=== PATIENT | female | born 1950 | race Caucasian/White ===

== ENCOUNTER 2018-04-30 06:49 | Emergency (ER) | payer MEDICAID ==
[~2018-04-30] VITALS: Ht 162.6 cm; Wt 40.9 kg
[2018-04-30 07:04] VITALS: BP 133/72; Ht 162.6 cm; Wt 40.9 kg
== END 2018-04-30 07:30 | disposition home or self-care (01) ==
LOC: ED 06:49
DX: K04.7 Periapical abscess without sinus (principal); R22.0 Localized swelling, mass and lump, head; I10 Essential (primary) hypertension

== ENCOUNTER 2018-10-21 02:42 | Emergency (ER) | payer MEDICAID ==
[~2018-10-21] VITALS: Ht 160 cm; Wt 88.0 kg
[2018-10-21 02:49] VITALS: Ht 160 cm; Wt 88.0 kg
[2018-10-21] MEDS ORDERED: NOR10 PO (03:39)
[2018-10-21] MEDS ORDERED: GLUCOPHAGE XR500 MG PO (03:40)
[2018-10-21] MEDS ORDERED: LIPI20 PO (03:40)
[2018-10-21] MEDS ORDERED: HYDROCHLOROTHIA25 MG PO (03:41)
[2018-10-21 03:56] LABS: BASOPHIL % 0.6 % (0-2); PLATELET COUNT 292 x10^3mcL (130-400); RED CELL DISTRIBUTION WIDTH 13.1 % (11.5-14.5)
[2018-10-21 04:01] LABS: CALCIUM 8.9 mg/dL (8.5-10.1); CARBON DIOXIDE 29.6 mmol/L (21-32); CHLORIDE SERUM 102 mmol/L (98-107); CREATININE SERUM 0.8 mg/dL (0.6-1.0); GFR1 > 60 mL/min; GLUCOSE SERUM 131 mg/dL (74-106)
[2018-10-21 04:11] LABS: POTASSIUM SERUM 3.3 mmol/L (3.5-5.1); SODIUM SERUM 140 mmol/L (136-145)
[2018-10-21 04:54] VITALS: BP 144/62
== END 2018-10-21 04:54 | disposition home or self-care (01) ==
LOC: ED 02:42
PROVIDERS: Emergency Medicine
DX: F41.9 Anxiety disorder, unspecified (principal); I10 Essential (primary) hypertension; E11.9 Type 2 diabetes mellitus without complications; E78.00 Pure hypercholesterolemia, unspecified
CPT/HCPCS: 36415

== ENCOUNTER 2019-02-13 18:11 | Emergency (ER) | payer MEDICAID ==
[~2019-02-13] VITALS: Ht 167.6 cm; Wt 86.2 kg
[~2019-02-13 18:11] MED LIST: GLUCOPHAGE XR500 MG PO; HYDROCHLOROTHIA25 MG PO; LIPI20 PO; NOR10 PO
[2019-02-13 18:14] VITALS: Ht 167.6 cm; Wt 86.2 kg
[2019-02-13 18:59] LABS: BASOPHIL % 0.2 % (0-2); PLATELET COUNT 314 x10^3mcL (130-400); RED CELL DISTRIBUTION WIDTH 13.9 % (11.5-14.5)
[2019-02-13 19:06] LABS: CALCIUM 9.6 mg/dL (8.5-10.1); CARBON DIOXIDE 25.6 mmol/L (21-32); CHLORIDE SERUM 105 mmol/L (98-107); CREATININE SERUM 0.8 mg/dL (0.6-1.0); GFR1 > 60 mL/min; GLUCOSE SERUM 134 mg/dL (74-106); POTASSIUM SERUM 3.6 mmol/L (3.5-5.1); SODIUM SERUM 140 mmol/L (136-145)
[2019-02-13 19:08] LABS: ALBUMIN 3.9 g/dL (3.4-5.0); ALKALINE PHOSPHATASE 79 U/L (46-116); ALT/SGPT 17 U/L (14-59); AMYLASE 62 U/L (25-115); AST/SGOT 6 U/L (15-37); BILIRUBIN TOTAL 0.35 mg/dL (0.20-1.00); LIPASE 181 IU/L (73-393); TOTAL PROTEIN, SERUM 7.6 g/dL (6.4-8.2)
[2019-02-13 19:34] LABS: UA SPECIFIC GRAVITY >=1.030 (1.005-1.035); microscopic required? YES; urine erythrocyte 1+ (NEGATIVE)
[2019-02-13 20:32] VITALS: BP 133/73
== END 2019-02-13 20:32 | disposition home or self-care (01) ==
LOC: ED 18:11
PROVIDERS: Emergency Medicine
DX: N20.0 Calculus of kidney (principal); F41.9 Anxiety disorder, unspecified; R06.4 Hyperventilation; I10 Essential (primary) hypertension; E11.9 Type 2 diabetes mellitus without complications; E78.00 Pure hypercholesterolemia, unspecified
CPT/HCPCS: J2060; J2405; J3490; J7030; Q9967

== ENCOUNTER 2019-02-15 12:41 | Inpatient (IN) | payer MEDICAID ==
[~2019-02-15] VITALS: Ht 157.5 cm; Wt 88.5 kg
[2019-02-15 12:48] VITALS: Ht 157.5 cm; Wt 88.5 kg
[2019-02-15 13:27] LABS: BASOPHIL % 0.2 % (0-2); PLATELET COUNT 299 x10^3mcL (130-400); RED CELL DISTRIBUTION WIDTH 14.2 % (11.5-14.5)
[2019-02-15] MEDS ORDERED: PRINIVIL10 MG PO (13:36)
[2019-02-15] MEDS ORDERED: TRAMADOL HYDROC1 TA1 (13:36)
[2019-02-15] MEDS ORDERED: PHENAZOPYRIDIN200 M3 PO (13:37)
[2019-02-15] MEDS ORDERED: ZOF4 (13:37)
[2019-02-15 13:41] LABS: CALCIUM 7.9 mg/dL (8.5-10.1); CARBON DIOXIDE 28.1 mmol/L (21-32); POTASSIUM SERUM 3.8 mmol/L (3.5-5.1)
[2019-02-15 13:45] LABS: ALBUMIN 3.1 g/dL (3.4-5.0); BILIRUBIN TOTAL 0.3 mg/dL (0.20-1.00); TOTAL PROTEIN, SERUM 6.7 g/dL (6.4-8.2)
[2019-02-15 14:12] LABS: microscopic required? YES; urine erythrocyte 1+ (NEGATIVE)
[2019-02-15 14:15] LABS: AMPHETAMINE QUAL UR NONE DETECTED (See below)
[2019-02-15 16:06] VITALS: BP 126/60
[2019-02-15 21:35] VITALS: BP 137/65
[2019-02-16 05:10] VITALS: BP 112/64
[2019-02-16 07:31] LABS: CALCIUM 8.3 mg/dL (8.5-10.1); CARBON DIOXIDE 30.2 mmol/L (21-32); CHLORIDE SERUM 108 mmol/L (98-107); CREATININE SERUM 0.8 mg/dL (0.6-1.0); GFR1 > 60 mL/min; GLUCOSE SERUM 101 mg/dL (74-106); POTASSIUM SERUM 3.7 mmol/L (3.5-5.1); SODIUM SERUM 143 mmol/L (136-145)
[2019-02-16 07:33] LABS: BASOPHIL % 0.6 % (0-2); PLATELET COUNT 249 x10^3mcL (130-400); RED CELL DISTRIBUTION WIDTH 14.3 % (11.5-14.5)
[2019-02-16 10:02] VITALS: BP 132/62
[2019-02-16 16:45] VITALS: BP 134/52
[2019-02-16 20:43] VITALS: BP 146/60
[2019-02-17 06:16] VITALS: BP 142/64
[2019-02-17 06:16] LABS: BASOPHIL % 0.5 % (0-2); PLATELET COUNT 239 x10^3mcL (130-400); RED CELL DISTRIBUTION WIDTH 14.2 % (11.5-14.5)
[2019-02-17 06:23] LABS: CHLORIDE SERUM 109 mmol/L (98-107); CREATININE SERUM 0.7 mg/dL (0.6-1.0); GFR1 > 60 mL/min; GLUCOSE SERUM 106 mg/dL (74-106); POTASSIUM SERUM 4.1 mmol/L (3.5-5.1); SODIUM SERUM 146 mmol/L (136-145)
[2019-02-17 10:10] VITALS: BP 131/59
[2019-02-17 17:34] VITALS: BP 138/98
[2019-02-17 21:13] VITALS: BP 153/73
[2019-02-18 06:04] VITALS: BP 144/62
[2019-02-18 06:40] LABS: BASOPHIL % 0.3 % (0-2); PLATELET COUNT 270 x10^3mcL (130-400)
[2019-02-18 06:41] LABS: CALCIUM 9.4 mg/dL (8.5-10.1); CARBON DIOXIDE 26.4 mmol/L (21-32); CHLORIDE SERUM 109 mmol/L (98-107); CREATININE SERUM 0.7 mg/dL (0.6-1.0); GFR1 > 60 mL/min; GLUCOSE SERUM 102 mg/dL (74-106); POTASSIUM SERUM 3.8 mmol/L (3.5-5.1); SODIUM SERUM 146 mmol/L (136-145)
[2019-02-18 09:53] VITALS: BP 119/56
[2019-02-18] MEDS ORDERED: LEVAQUIN750 MG PO (10:41)
[2019-02-18] MEDS ORDERED: COLACE100 MG PO (10:42)
[2019-02-18 14:09] VITALS: BP 130/67
== END 2019-02-18 15:36 | disposition home or self-care (01) | DRG 48 ==
LOC: ED 12:41 → MU 13:30
PROVIDERS: Emergency Medicine; Internal Medicine; Internal Medicine Gastroenterology; ADMIT General Practice
PROC: 0DB78ZX Excision of Stomach, Pylorus, Via Natural or Artificial Opening Endoscopic, Diagnostic (ICD-10-PCS; principal; 2019-02-18 09:30)
PROC: 0DJD8ZZ Inspection of Lower Intestinal Tract, Via Natural or Artificial Opening Endoscopic (ICD-10-PCS; 2019-02-18 09:30)
DX: E11.43 Type 2 diabetes mellitus with diabetic autonomic (poly)neuropathy (principal); E44.1 Mild protein-calorie malnutrition; K31.84 Gastroparesis; N39.0 Urinary tract infection, site not specified; K57.30 Diverticulosis of large intestine without perforation or abscess without bleeding; I10 Essential (primary) hypertension; E78.00 Pure hypercholesterolemia, unspecified; K59.00 Constipation, unspecified; Z79.84 Long term (current) use of oral hypoglycemic drugs
CPT/HCPCS: 36600; 43235; 45378; 82962; J1200; J1610; J1885; J1956; J2060; J2250; J2310; J2405; J2765; J3010; J3490; J7030; Q0092; Q9967